=== PATIENT | male | born 1930 | race Caucasian/White ===

== ENCOUNTER 2017-09-07 09:24 | Emergency (ER) | payer OTHER ==
[~2017-09-07] VITALS: Ht 175.3 cm; Wt 78.9 kg
[~2017-09-07 09:24] MED LIST: ATOR20 PO; BAYER CHEWABLE81 MG PO; CIPR250 PO; CIPR500 PO; CLOBET30L TOP; CLON.5 PO; CODGUAEL PO; DILT60 PO; HYDR1TAB94 PO; IBUP200; IBUP400 PO; LEVSOD100; LEVSOD150 PO; MAGCIT300 PO; METO25ER PO; MIRALAX17 GM PO; Milk Of Ma400 MG/5 M PO; NITR100CA PO; OSEL75CA PO; OXYACE5T PO; PRED10 PO; RISE30; RXPROM25S PR; XARELTO15 MG PO
[2017-09-07 10:39] LABS: BASOPHILS ABSOLUTE AUTO 0.03 K/mm3 (0.00-0.23); BASOPHILS PERCENT AUTO 0 % (0-2); EOSINOPHILS PERCENT AUTO 2 % (0-6); Hemoglobin 11.4 g/dL (13.5-17.5); IMMATURE GRAN ABSOLUTE AUTO 0.04 K/mm3 (0.00-0.10); IMMATURE GRAN PERCENT AUTO 0 % (0-1); LYMPHOCYTES ABSOLUTE AUTO 6.94 K/mm3 (0.84-5.20); LYMPHOCYTES PERCENT AUTO 67 % (21-46); MONOCYTES ABSOLUTE AUTO 1.03 K/mm3 (0.16-1.47); MONOCYTES PERCENT AUTO 10 % (4-13); Mean Corpuscular HGB 32.2 pg (26.0-34.0); Mean Corpuscular HGB Conc 32.6 g/dL (31.5-36.5); Mean Corpuscular Volume 99 fL (80-100); Mean Platelet Volume 8.7 fL (9.1-12.4); NEUTROPHILS ABSOLUTE AUTO 2.05 K/mm3 (1.96-9.15); NEUTROPHILS PERCENT AUTO 20 % (41-73); Platelet Count 212 K/mm3 (150-400); RDW Coefficient Variation 16.9 % (11.7-14.2); RDW Standard Deviation 61.3 fL (35.1-46.3); Red Blood Cell Count 3.54 M/mm3 (4.30-5.90); White Blood Cell Count 10.29 K/mm3 (4.00-11.30)
[2017-09-07 10:53] LABS: Troponin I <0.015 ng/mL (0.000-0.040)
[2017-09-07 11:09] LABS: Alanine Aminotransfer (ALT/SGP 28 U/L (12-78); Albumin, Blood 3.4 g/dL (3.4-5.0); Albumin/Globulin Ratio 0.9 (0.8-1.8); Alk Phos 128 U/L (50-136); Anion Gap 7 mmol/L (6-16); Aspartate Aminotrans (AST/SGOT 36 U/L (12-37); Bilirubin, Total 0.5 mg/dL (0.1-1.0); Blood Urea Nitrogen 19 mg/dL (8-24); Bun/Creatinine Ratio 16.5 (12.0-20.0); CO2, Blood 26 mmol/L (21-32); Calcium, Blood 8.6 mg/dL (8.5-10.1); Chloride, Blood 106 mmol/L (98-108); Creatinine, Blood 1.15 mg/dL (0.60-1.20); Globulin, Blood 3.7 g/dL (2.2-4.0); Glomerular Filtration Rate >60 (60-); Glucose, Blood 103 mg/dL (70-99); Sodium, Blood 139 mmol/L (136-145); Total Protein, Blood 7.1 g/dL (6.4-8.2)
== END 2017-09-07 13:05 | disposition home or self-care (01) ==
LOC: ER 09:24
PROVIDERS: Emergency Medicine
DX: R07.89 Other chest pain (principal); Z88.0 Allergy status to penicillin; Z88.8 Allergy status to other drugs, medicaments and biological substances; Z88.2 Allergy status to sulfonamides; Z79.899 Other long term (current) drug therapy; Z79.82 Long term (current) use of aspirin; Z90.49 Acquired absence of other specified parts of digestive tract; Z95.5 Presence of coronary angioplasty implant and graft
CPT/HCPCS: 36415; 71046; 80053; 84484; 85025; 93005; 93010; 99283

== ENCOUNTER 2017-10-24 02:22 | Day surgery (SDC) | payer OTHER ==
[~2017-10-24] VITALS: Ht 175.3 cm; Wt 84.0 kg
[2017-10-24] MEDS ORDERED: IRON240 MG PO (06:30)
[2017-10-24] MEDS ORDERED: Fish Oil 1,0001 EAC3 PO (06:30)
[2017-10-24] MEDS ORDERED: UBID10 PO (06:31)
[2017-10-24] MEDS ORDERED: CALCA400CH PO (06:31)
[2017-10-24] MEDS ORDERED: GARLIC200 MG PO (06:32)
== END 2017-10-24 17:00 | disposition home or self-care (01) ==
LOC: MHTC 02:22
PROC: 047M3Z1 Dilation of Right Popliteal Artery using Drug-Coated Balloon, Percutaneous Approach (ICD-10-PCS; principal; 2017-10-24)
PROC: 04CM3ZZ Extirpation of Matter from Right Popliteal Artery, Percutaneous Approach (ICD-10-PCS; principal; 2017-10-24)
DX: I70.211 Atherosclerosis of native arteries of extremities with intermittent claudication, right leg (principal)
CPT/HCPCS: 37225; 75630; 75774; 85347; 93005; 93010; 99152; 99153; C1725; C1769; C1884; C1885; C1887; C2623; J1644; J2250; J2405; J2720; J3010; J7030; J7040; Q9967